=== PATIENT | female | born 2000 ===

== ENCOUNTER 2022-03-27 11:11 | Emergency (ER) | payer SELFPAY ==
[2022-03-27 11:42] VITALS: BP 129/88
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
== END 2022-03-27 15:42 | disposition left against medical advice (07) ==
LOC: ED 11:11
DX: S90.02XA Contusion of left ankle, initial encounter (principal); S90.32XA Contusion of left foot, initial encounter; V87.7XXA Person injured in collision between other specified motor vehicles (traffic), initial encounter; Y93.89 Activity, other specified; Y92.488 Other paved roadways as the place of occurrence of the external cause; Y99.8 Other external cause status
CPT/HCPCS: 99281